=== PATIENT | male | born 1985 | race Caucasian/White ===

== ENCOUNTER 2017-11-19 18:20 | Emergency (ER) | payer OTHER ==
[~2017-11-19] VITALS: Ht 162.6 cm; Wt 72.6 kg
--- NOTE | 2017-11-19 19:10 | NUR ---
DR HERMILO ALAS MD AT BEDSIDE FOR MSE.
[2017-11-19] MEDS: AZITHROMYCIN 250 MG TABLET PO ONE (19:17)
[2017-11-19] MEDS ORDERED: AZITHROMYCIN 250 MG TABLET ONE (19:21)
--- NOTE | 2017-11-19 19:55 | NUR ---
Patient discharged to home in stable conditon. Written and verbal after care instructions given. Patient verbalizes understanding of instructions. PT ambulated from ER w/ steady gait. No distress noted. Pt took all personal belongings.
[2017-11-19 19:57] VITALS: BP 122/78
== END 2017-11-19 19:58 | disposition home or self-care (01) ==
LOC: ER 18:23
DX: Z11.3 Encounter for screening for infections with a predominantly sexual mode of transmission (principal); Z59.0 Homelessness
CPT/HCPCS: A4663; Q0144

== ENCOUNTER 2018-01-16 18:16 | Emergency (ER) | payer OTHER ==
[~2018-01-16] VITALS: Ht 170.2 cm; Wt 72.6 kg
[2018-01-16] MEDS ORDERED: MUPIROCIN 2% OINT 22 GM TUBE ONE (19:12)
--- NOTE | 2018-01-16 19:19 | NUR ---
Cleaned patient's wound with NS, mupirocin applied, covered with bandaid. Patient discharged to home in stable conditon. Written and verbal after care instructions given. Patient verbalizes understanding of instructions. Patient ambulated out of ER with steady gait, no acute signs of distress, VSS, no acute signs of distress, all belongings taken.
[2018-01-16 19:22] VITALS: BP 112/77
[2018-01-16] MEDS ORDERED: MUPIROCIN 2% OINT 22 GM TUBE TP ONE (19:30)
== END 2018-01-16 19:33 | disposition home or self-care (01) ==
LOC: ER 18:17
DX: S61.210A Laceration without foreign body of right index finger without damage to nail, initial encounter (principal); N45.4 Abscess of epididymis or testis; L55.9 Sunburn, unspecified; X58.XXXA Exposure to other specified factors, initial encounter; Y93.89 Activity, other specified; Y92.89 Other specified places as the place of occurrence of the external cause; Y99.8 Other external cause status
CPT/HCPCS: 73140; A4663

== ENCOUNTER 2018-06-02 19:39 | Emergency (ER) | payer MEDICAID, OTHER ==
[~2018-06-02] VITALS: Ht 162.6 cm; Wt 73.9 kg
--- NOTE | 2018-06-02 20:14 | NUR ---
PT A/OX4, PRESENTS TO THE ER W/ FRIEND, C/O R EARACHE X 3 DAYS. PAIN IS PROVOKED BY COUGHING, ACHING IN QUAILTY, DOES NOT RADIATE, 10/10, CONSTANT. NO DRAINAGE FROM THE R EAR NOTED. PT IS AFEBRILE. VSS. PT DENIES C/P, SOB, N/V/D, DIZZINESS, HEADACHE.
--- NOTE | 2018-06-02 20:39 | NUR ---
BISHOP CARDENAS AT BEDSIDE FOR MSE.
--- NOTE | 2018-06-02 20:45 | NUR ---
PT PROVIDED W/ FOOD AND WATER
--- NOTE | 2018-06-02 20:54 | NUR ---
Patient given written and verbal discharge instructions. Patient verbalizes understanding of instructions. Patient is ambulatory with steady gait. Refuses offer of intermediate placement. Patient given list of available shelters in surrounding area. ALL BELONGINGS W/ PT. PT SELF-AMBULATED W/O DIFFICULTY.
== END 2018-06-02 21:00 | disposition home or self-care (01) ==
LOC: ER 19:39
DX: S00.411A Abrasion of right ear, initial encounter (principal); H66.91 Otitis media, unspecified, right ear; H61.21 Impacted cerumen, right ear; Z59.0 Homelessness; X58.XXXA Exposure to other specified factors, initial encounter; Y93.89 Activity, other specified; Y92.89 Other specified places as the place of occurrence of the external cause; Y99.8 Other external cause status
CPT/HCPCS: A4663